=== PATIENT | female | born 1995 | race African-American/Black ===

== ENCOUNTER 2020-09-09 02:36 | Observation (INO) | payer OTHER, MEDICAID, SELFPAY ==
--- NOTE | 2020-09-09 06:51 | PM.OBTRLD ---
Visit Information Visit Information Date of evaluation: 09/09/20 On-call OB Provider: amanuel Reason for Evaluation: Yes rule out labor Vital Signs Vital Signs: Blood pressure 122/73, pulse of 117, temperature 36.6? Review of Systems Review of Systems Narrative: Patient denies headaches, scotomata, epigastric pain. She is complaining of regular painful contractions. No leakage of fluid. Good movement. ROS: Yes All systems reviewed with the patient and are negative except as otherwise documented Evaluation Evaluation Baseline heart rate: 130 Variability: Moderate (11-25) monitor accelerations: Present Monitor Decelerations: Absent Contraction Frequency (minutes): 5 Uterine Contraction Intensity: Moderate Category of Tracing: Reactive Status: Category l Cervical dilation (cm): 1 Cervical effacement (%): 90 station: +1 Diagnosis, Plan/Disposition Final Diagnosis (1) False labor: Status: Acute (2) 40 weeks gestation of : Status: Acute Plan/Disposition Plan: Home to follow-up with her acquisitions assistant OB Disposition: home
== END 2020-09-09 05:47 | disposition home or self-care (01) ==
PROVIDERS: Admitting Provider Specialist; Referring Provider Specialist; Visit Provider Specialist
DX: O47.1 False labor at or after 37 completed weeks of gestation (principal); O48.0 Post-term pregnancy; Z3A.40 40 weeks gestation of pregnancy
CPT/HCPCS: 59025; 59050; G0378; G0379